=== PATIENT | male | born 1970 | race Caucasian/White ===

== ENCOUNTER 2018-08-18 20:32 | Inpatient (IN) | payer OTHER ==
[~2018-08-18] VITALS: Ht 190.5 cm; Wt 66.7 kg
--- NOTE | ~2018-08-18 | EKG ---
[place], [place] ELECTROCARDIOGRAM REPORT NAME: DEVAN SUN UNIT #: [id number] ROOM: 416 DOCTOR: JEREMIAS DRAFT REPORT BIRTHDATE: [birth year] [facility] Test Date: 2018-08-18 Test Time: 21:12:48 Pat Name: DEVAN SUN Department: Room: 416 Gender: M Automatic Toe Laster: Stephania Mccabe : 1970 Requested By: STEPHANIE KAY Order Number: [id number] Reading MD: Kelly Reddy MD Measurements Intervals Bradley Rate: 78 P: 67 AK: 151 QRS: 15 QRSD: 104 T: 54 QT: 392 QTc: 447 Interpretive Statements Sinus rhythm Electronically Signed On 08-19-2018 12:17:47 PST by Kelly Reddy MD CM:[id number]:ELECTROCARDIOGRAM REPORT 1217 STEPHANIE RIVERA DRAFT REPORT STEPHANIE KAY DO
[2018-08-18 20:38] VITALS: BP 124/81
[2018-08-18 21:38] LABS: ALBUMIN 3.7 gm/dl (3.1-4.5); ALKALINE PHOSPHATASE 79 U/L (45-117); BUN 4 mg/dl (7-24); CHLORIDE 105 mmol/L (98-107); CREATININE 0.74 mg/dL (0.70-1.30); POTASSIUM 3.7 mmol/L (3.5-5.1); SGOT/AST 119 IU/L (3-35); SGPT/ALT 118 U/L (12-78); SODIUM 138 mmol/L (136-145); TOTAL PROTEIN 7.2 gm/dL (6.4-8.2)
[2018-08-18 21:44] LABS: BILIRUBIN NEGATIVE (NEGATIVE); BLOOD NEGATIVE (NEGATIVE); CLARITY SL CLOUDY (CLEAR); COLOR YELLOW (YELLOW); GLUCOSE NEGATIVE (NEGATIVE); KETONE NEGATIVE (NEGATIVE); LEUKO ESTERASE NEGATIVE (NEGATIVE); NITRITE NEGATIVE (NEGATIVE); PH 5.5 (5.0-9.0); SPECIFIC GRAVITY <= 1.005 (1.005-1.030); UROBILINOGEN 0.2 E.U./dl (0.2-1.0)
[2018-08-18 21:45] LABS: ACETAMINOPHEN (TYLENOL) < 5.0 ug/ml (10-30)
[2018-08-18 21:50] LABS: URINE AMPHETAMINES < 1000 (1000ng/ml); URINE BARBITURATES < 200 (200ng/ml); URINE BENZODIAZEPINES < 200 (200ng/ml); URINE CANNABINOIDS (THC) > 50 (50ng/ml); URINE COCAINE < 300 (300ng/ml); URINE METHADONE < 300 (300ng/ml); URINE OPIATES > 300 (300ng/ml); URINE PHENCYCLIDINE < 25 (25ng/ml)
[2018-08-18 22:06] LABS: BACTERIA TRACE; RBC 0-2 rbc/hpf (0-2); WBC 0-2 wbc/hpf (0-5)
[2018-08-18 22:09] LABS: BASO # 0.1 10*3/uL (0.0-0.1); BASO % 1.3 % (0.0-1.0); EOS # 0.1 10*3/uL (0.0-0.4); EOS % 2.3 % (1.0-4.0); HEMATOCRIT 32.1 % (42.0-52.0); HEMOGLOBIN 9.3 g/dl (14.0-18.0); LYMPH # 1.1 10*3/uL (1.3-4.4); LYMPH % 28.4 % (27.0-41.0); MEAN CELL VOLUME 77.2 fl (80.0-94.0); MEAN CORPUSCULAR HGB 22.4 pg (27.0-31.0); MEAN PLATELET VOLUME 10.9 fl (9.6-12.3); MONO # 0.5 10*3/uL (0.1-1.0); MONO % 11.6 % (3.0-9.0); NEUT # 2.2 10*3/uL (2.3-7.9); NEUT % 55.9 % (47.0-73.0); PLATELET COUNT AUTOMATED 175 10*3/uL (130-400); RED BLOOD COUNT 4.16 10*6/uL (4.50-5.90); RED CELL DISTRI WIDTH 19.1 % (0-14.5); WHITE BLOOD COUNT 3.9 10*3/uL (4.8-10.8)
--- NOTE | 2018-08-18 22:11 | NUR ---
PATIENT STATES HE HAS A RASH TO THE RIGHT UPPER LEG WHERE HIS SLEEVE IS FOR HIS LEG.. SCABS NOTED TO THE LEFT KNEE. NO OPEN AREAS ON THE LEFT KNEE. NO PHOTO TAKEN OF THE LEFT KNEE.
--- NOTE | 2018-08-18 23:14 | NUR ---
A 47, admitted to , under the services of GEORGIE Garcia DO with a diagnosis of ALCOHOL ABUSE, DESIRE FOR DETOXIFICATION. Chief complaint is DESIRE FOR DETOXIFICATION. Patient arrived via bed from ER. Monitor applied. Initial assessment completed. Vital signs taken and recorded. GEORGIE GARCIA DO notified of admission to the unit. Orders received. See assessment for past medical history, medications and allergies. Patient and/or family oriented to unit. [address] visitation policy reviewed. Clothing/patient valuable form completed. GOLDIE ANDRES
[2018-08-19] VITALS: BP 134/78
--- NOTE | 2018-08-19 00:34 | NUR ---
22 GAUGE IV STARTED IN THE LEFT AC. NO UNSUCCESSFUL ATTEMPTS.
--- NOTE | 2018-08-19 02:51 | NUR ---
PT RESTING COMFORTABLY IN BED. THERE ARE NO COMPLAINTS OF PAIN OR DISCOMFORT. PT SAYS THAT HE IS EAGER TO GET STARTED WITH HIS RECOVERY. CALL LIGHT WITHIN REACH, WILL CONTINUE TO MONITOR.
--- NOTE | 2018-08-19 05:40 | NUR ---
PRN TYLENOL ADMINISTERED FOR COMPLAINT OF A HEADACHE. WILL CONTINUE TO MONITOR.
[2018-08-19 06:19] LABS: BASO % 0.6 % (0.0-1.0); EOS % 0.5 % (1.0-4.0); HEMATOCRIT 32.9 % (42.0-52.0); HEMOGLOBIN 9.4 g/dl (14.0-18.0); LYMPH # 0.6 10*3/uL (1.3-4.4); LYMPH % 9.1 % (27.0-41.0); MEAN CELL VOLUME 76.3 fl (80.0-94.0); MEAN CORPUSCULAR HGB 21.8 pg (27.0-31.0); MEAN CORPUSCULAR HGB CONC 28.6 g/dl (33.0-37.0); MEAN PLATELET VOLUME 11.8 fl (9.6-12.3); MONO # 0.6 10*3/uL (0.1-1.0); MONO % 9.1 % (3.0-9.0); NEUT # 5.2 10*3/uL (2.3-7.9); NEUT % 79.9 % (47.0-73.0); PLATELET COUNT AUTOMATED 164 10*3/uL (130-400); RED BLOOD COUNT 4.31 10*6/uL (4.50-5.90); RED CELL DISTRI WIDTH 19.1 % (0-14.5); WHITE BLOOD COUNT 6.6 10*3/uL (4.8-10.8)
[2018-08-19 06:25] LABS: ALBUMIN 3.6 gm/dl (3.1-4.5); ALKALINE PHOSPHATASE 77 U/L (45-117); BUN 4 mg/dl (7-24); CHLORIDE 104 mmol/L (98-107); CREATININE 0.67 mg/dL (0.70-1.30); POTASSIUM 3.8 mmol/L (3.5-5.1); SGOT/AST 91 IU/L (3-35); SGPT/ALT 106 U/L (12-78); SODIUM 137 mmol/L (136-145)
--- NOTE | 2018-08-19 07:53 | NUR ---
DEVAN SUN [id number] Please refer to the physician's history and physical for past medical history, comorbid conditions, and allergies. Diagnosis: ALCOHOL ABUSE DESIRE FOR DETOXIFICATION Pradeep Score: 21,LOW OR NO RISK WOUND DESCRIPTIONS: Location of the wound: right hip Type of wound: medical intern related pressure injury (stage 3) Thickness: Full Size: 2.0cm x 0.4cm x 0.1cm Tunneling: none Undermining: none Sinus Tract: none Presence of Exudate: Serous Amount: Light Color: Yellow, red Odor: None Periwound Skin Appearance: Scar Wound edges: approximated Pain (associated with wound): very tender to touch How does patient state this happened? pt stated that this has been on and off for about 6 months. He stated he got a new prothesic about 1 year ago. He wishes to follow up in [facility] due to the location being closer to home. Location of the wound: forehead Thickness: Full Size: 1.7cm x 0.6cm x <0.1cm Tunneling: none Undermining: none Sinus Tract: none Presence of Exudate: none Amount: None Color: Brown, red, yellow Odor: None Periwound Skin Appearance: Normal Wound edges: approximated Pain (associated with wound): none at time of assessment How does patient state this happened? pt stated he was pulling a nail out and the hammer came back and hit him in the forehead. Surface the patient is resting on: Position Pro SKIN PREVENTION RECOMMENDATION: 1. Pressure redistribution support surface as appropriate 2. Elevate heels 3. Remove boots/TEDS every shift and reapply 4. Head of bed 30 degrees as tolerated 5. Assess nutrition and hydration 6. Manage moisture 7. Avoid the use of containment devices while in bed 8. Use absorptive products on surfaces limit layers of linens on bed 9. Turn and reposition every 1-2 hours in bed and every 1 hour in chair as tolerated 10. Weight shifts every 15 minutes while up in chair 11. Offloading with pillows or device to keep heels elevated off bed 12. Monitor skin at least every shift 13. Inspect under medical devices twice a day WOUND TREATMENT RECOMMENDATIONS: Cleanse forehead with nss and apply antibiotic ointment daily and cover with bandaid. Stage 3 guidelines: Cleanse right hip with nss and apply sureprep around the wound therahoney to wound bed and cover with optifoam gentle. Consult [facility] per patient request for area on right hip. Patient wishes to follow up with [facility] upon discharge.
[2018-08-19 08:00] VITALS: BP 131/69
[2018-08-19] MEDS ORDERED: NEURONTIN300 MG PO (09:26)
[2018-08-19] MEDS ORDERED: NYSTATIN OINTME30 GM T (09:27)
--- NOTE | 2018-08-19 11:21 | NUR ---
Dr. Martin notified of wound care recommendations.
[2018-08-19 12:00] VITALS: BP 124/69
--- NOTE | 2018-08-19 12:35 | NUR ---
PATIENT MEETS [facility]. [facility] DISCUSSED REFERRAL OPTIONS FOR THE PATIENT. [facility] WILL FOLLOW UP WITH THE PATIENT TO SEE IF HE HAS MADE A DECISION ON WHAT HE WOULD LIKE TO DO FOR HIS AFTERCARE PLAN. JESUS LE MS FASHION DESIGN PROFESSOR
[2018-08-19 16:00] VITALS: BP 141/85
[2018-08-19 20:00] VITALS: BP 136/77
--- NOTE | 2018-08-19 20:13 | NUR ---
PT IS AWAKE AND RESTING IN BED. HE STATES THAT HE IS HAVING MILD ANXIETY. PT DENIES HAVING ANY DT'S. NO NOTICEABLE TREMORS AT THIS TIME. PRN ATIVAN ADMINISTERED. CALL LIGHT WITHIN REACH. WILL CONTINUE TO MONITOR.
--- NOTE | 2018-08-19 20:29 | NUR ---
24 HR CHART CHECK COMPLETE
--- NOTE | 2018-08-19 21:00 | NUR ---
PT ASLEEP IN BED WITH NO VISIBLE SIGNS OF TREMORS OR DISCOMFORT. PRN ATIVAN EFFECTIVE. WILL CONTINUE TO MONITOR.
[2018-08-20] VITALS: BP 113/89
--- NOTE | 2018-08-20 02:43 | NUR ---
PT SEEN TO ADMINISTER 0200 DOSE OF LIBRIUM. HE STATES HE NO LONGER HAS A HEADACHE AND DOES NOT FEEL ANXIOUS ANYMORE. SPEECH IS SOMEWHAT SLURRED BUT PATIENT IS ALERT AND ORIENTED. BED IN LOW POSITION AND CALL LIGHT IS WITHIN REACH. WILL CONTINUE TO MONITOR.
[2018-08-20 08:00] VITALS: BP 142/89
[2018-08-20 08:43] VITALS: BP 142/78
[2018-08-20 12:00] VITALS: BP 130/80
--- NOTE | 2018-08-20 15:13 | NUR ---
PATIENT WENT OUT SIDE TO SMOKE. DR. MURRAY WAS NOTIFIED AND WILL COME UP TO SEE THE PATIENT AND DECIDE IF DC IS APPROPRIATE.
[2018-08-20 16:00] VITALS: BP 143/85
--- NOTE | 2018-08-20 16:47 | NUR ---
PATIENT WILL FOLLOW UP WITH [facility] IN [place], [place] FOR OUTPATIENT COUNSELING. PATIENT CAN BE SEEN FOR A WALK IN ASSESSMENT MON-THURS 8AM-2PM AND SAT 8AM-12PM. PATIENT AGREES AND UNDERSTANDS HIS AFTERCARE PLAN. JESUS LE MS MAINTENANCE SERVICE TECHNICIAN
[2018-08-20 20:00] VITALS: BP 133/82
[2018-08-21] VITALS: BP 123/74
--- NOTE | 2018-08-21 05:45 | NUR ---
CALLED TO ROOM BY PATIENT'S ROOMMATE. PATIENT STANDING IN ROOM BY SINK. STATES HE FELL TWICE. ASSISTED TO CHAIR. PATIENT ALERT & ORIENTED X3. ASSISTED FROM CHAIR TO BED. PATIENT'S NURSE HERO VIEYRA NOTIFIED. NO VISIBLE INJURY NOTED. CIGARETTES AND DATA SYSTEMS MANAGER NOTED ON FLOOR.
--- NOTE | 2018-08-21 05:50 | NUR ---
CONTACTED DR. MANSFIELD IN REGARDS TO A REPORTED FALL FROM FLOAT NURSE. CT HEAD AND XR OF ELBOW ORDERED AT THIS TIME.
[2018-08-21 08:00] VITALS: BP 100/62
--- NOTE | 2018-08-21 10:59 | NUR ---
PATIENT IS BEING DISCHARGED AND REFUSED WOUND PHOTOS.
--- NOTE | 2018-08-21 11:10 | NUR ---
Discharge instructions reviewed with patient/family. Patient receptive and verbalizes understanding. Follow-up care arranged. Written instructions given to patient/family. CHARITO MURCIA
== END 2018-08-21 11:10 | disposition home or self-care (01) | DRG 897 ==
LOC: ED 20:32 → 4E 22:20 → EDHOLD 22:20 → 4E 22:40
PROVIDERS: Emergency Medicine; Family Medicine; ADMIT Internal Medicine
DX: F10.10 Alcohol abuse, uncomplicated (principal); S06.0X9A Concussion with loss of consciousness of unspecified duration, initial encounter; S01.01XA Laceration without foreign body of scalp, initial encounter; F32.9 Major depressive disorder, single episode, unspecified; R51 Headache; B37.2 Candidiasis of skin and nail; Z71.6 Tobacco abuse counseling; K21.9 Gastro-esophageal reflux disease without esophagitis; F11.10 Opioid abuse, uncomplicated; F12.10 Cannabis abuse, uncomplicated; E83.51 Hypocalcemia; F41.9 Anxiety disorder, unspecified; D50.9 Iron deficiency anemia, unspecified; Z82.0 Family history of epilepsy and other diseases of the nervous system; Z88.0 Allergy status to penicillin; Z88.8 Allergy status to other drugs, medicaments and biological substances; Z91.018 Allergy to other foods; Z89.511 Acquired absence of right leg below knee; Z82.49 Family history of ischemic heart disease and other diseases of the circulatory system; Z80.42 Family history of malignant neoplasm of prostate; Y08.89XA Assault by other specified means, initial encounter; Y93.89 Activity, other specified; Y92.89 Other specified places as the place of occurrence of the external cause; Y99.8 Other external cause status

== ENCOUNTER 2021-10-05 10:57 | Inpatient (IN) | payer OTHER ==
[~2021-10-05] VITALS: Ht 190.5 cm; Wt 89.8 kg
[~2021-10-05 10:57] MED LIST: NEURONTIN300 MG PO; NYSTATIN OINTME30 GM T
[2021-10-05 11:15] VITALS: BP 157/103
[2021-10-05 11:36] LABS: BASO % 1.1 % (0.0-1.0); EOS # 0.1 10*3/uL (0.0-0.4); EOS % 2.5 % (1.0-4.0); LYMPH # 0.8 10*3/uL (1.3-4.4); LYMPH % 20.6 % (27.0-41.0); MEAN CELL VOLUME 90.9 fl (80.0-94.0); MEAN CORPUSCULAR HGB 29.7 pg (27.0-31.0); MEAN CORPUSCULAR HGB CONC 32.6 g/dl (33.0-37.0); MONO # 0.4 10*3/uL (0.1-1.0); MONO % 10.2 % (3.0-9.0); NEUT # 2.4 10*3/uL (2.3-7.9); NEUT % 65.3 % (47.0-73.0); PLATELET COUNT AUTOMATED 137 10*3/uL (130-400); RED BLOOD COUNT 4.62 10*6/uL (4.50-5.90); RED CELL DISTRI WIDTH 15.2 % (0-14.5); WHITE BLOOD COUNT 3.6 10*3/uL (4.8-10.8)
[2021-10-05 11:46] LABS: INTERNATIONAL NORM RATIO 1.1 (2.0-3.5)
[2021-10-05] MEDS ORDERED: PROTONIX40 MG PO (11:46)
[2021-10-05] MEDS ORDERED: CYCLOBENZAPRINE10 MG PO (11:48)
[2021-10-05] MEDS ORDERED: MELOXICAM10 MG PO (11:49)
[2021-10-05] MEDS ORDERED: AMITRIPTYLINE10 MG PO (11:51)
[2021-10-05] MEDS ORDERED: CELEXA10 MG PO (11:55)
[2021-10-05 11:56] LABS: ALKALINE PHOSPHATASE 88 U/L (45-117); BUN 4 mg/dl (7-24); CHLORIDE 110 mmol/L (98-107); CREATININE 0.68 mg/dL (0.70-1.30); LIPASE 183 U/L (73-393); POTASSIUM 3.7 mmol/L (3.5-5.1); SGOT/AST 222 IU/L (3-35); SGPT/ALT 144 U/L (12-78); SODIUM 141 mmol/L (136-145); TOTAL PROTEIN 7.9 gm/dL (6.4-8.2)
[2021-10-05 15:15] VITALS: BP 158/86
[2021-10-05 18:37] LABS: BILIRUBIN Negative (Negative); BLOOD Negative (Negative); CLARITY Clear (Clear); COLOR Yellow (Yellow); GLUCOSE Negative (Negative); KETONE Negative (Negative); LEUKO ESTERASE 1+ (Negative); NITRITE Positive (Negative); SPECIFIC GRAVITY <= 1.005 (1.001-1.030)
[2021-10-05 18:46] LABS: URINE AMPHETAMINES < 1000 (1000ng/ml); URINE BARBITURATES < 200 (200ng/ml); URINE BENZODIAZEPINES < 200 (200ng/ml); URINE CANNABINOIDS (THC) > 50 (50ng/ml); URINE COCAINE < 300 (300ng/ml); URINE METHADONE < 300 (300ng/ml); URINE OPIATES < 300 (300ng/ml); URINE PHENCYCLIDINE < 25 (25ng/ml)
[2021-10-05 18:49] LABS: BACTERIA 3+; EPITHELIAL CELLS 0-2
[2021-10-05 20:01] VITALS: BP 158/90
[2021-10-06] VITALS: BP 158/60
[2021-10-06 08:00] VITALS: BP 162/111
[2021-10-06 12:00] VITALS: BP 141/94
[2021-10-06 16:00] VITALS: BP 144/94
[2021-10-06 20:00] VITALS: BP 155/97
[2021-10-07] VITALS: BP 148/96
[2021-10-07 05:47] LABS: BASO % 0.9 % (0.0-1.0); EOS # 0.1 10*3/uL (0.0-0.4); EOS % 3.9 % (1.0-4.0); LYMPH # 0.9 10*3/uL (1.3-4.4); LYMPH % 28.1 % (27.0-41.0); MEAN CELL VOLUME 93.1 fl (80.0-94.0); MEAN CORPUSCULAR HGB 30.1 pg (27.0-31.0); MEAN CORPUSCULAR HGB CONC 32.3 g/dl (33.0-37.0); MONO # 0.4 10*3/uL (0.1-1.0); MONO % 12.2 % (3.0-9.0); NEUT # 1.8 10*3/uL (2.3-7.9); NEUT % 54.6 % (47.0-73.0); PLATELET COUNT AUTOMATED 101 10*3/uL (130-400); RED BLOOD COUNT 4.19 10*6/uL (4.50-5.90); RED CELL DISTRI WIDTH 15.1 % (0-14.5); WHITE BLOOD COUNT 3.4 10*3/uL (4.8-10.8)
[2021-10-07 06:07] LABS: BUN 7 mg/dl (7-24); CHLORIDE 107 mmol/L (98-107); CREATININE 0.75 mg/dL (0.70-1.30); POTASSIUM 3.7 mmol/L (3.5-5.1); SODIUM 137 mmol/L (136-145)
[2021-10-07 08:00] VITALS: BP 137/94
[2021-10-07 12:00] VITALS: BP 143/100
[2021-10-07 16:00] VITALS: BP 140/92
[2021-10-07 20:00] VITALS: BP 155/98
[2021-10-08] VITALS: BP 136/89
[2021-10-08 08:00] VITALS: BP 140/91
== END 2021-10-08 12:00 | disposition left against medical advice (07) | DRG 770 ==
LOC: 5E 10:57
PROVIDERS: Internal Medicine; ADMIT Internal Medicine; ATTEND Internal Medicine
DX: F10.230 Alcohol dependence with withdrawal, uncomplicated (principal); R65.10 Systemic inflammatory response syndrome (SIRS) of non-infectious origin without acute organ dysfunction; K42.9 Umbilical hernia without obstruction or gangrene; D64.9 Anemia, unspecified; E87.8 Other disorders of electrolyte and fluid balance, not elsewhere classified; R74.01 Elevation of levels of liver transaminase levels; F17.210 Nicotine dependence, cigarettes, uncomplicated; Z71.6 Tobacco abuse counseling; Z53.29 Procedure and treatment not carried out because of patient's decision for other reasons; Z80.42 Family history of malignant neoplasm of prostate; Z88.8 Allergy status to other drugs, medicaments and biological substances; Z82.49 Family history of ischemic heart disease and other diseases of the circulatory system; Z79.899 Other long term (current) drug therapy